=== PATIENT | male | born 1955 | race Caucasian/White ===

== ENCOUNTER → 2017-05-17 | Outpatient (CLI) | payer MEDICAID ==
[~2017-05-17] MED LIST: LOSA100T6 PO; METF500T4 PO; TRAM50TA2 PO; UNKNOWN BP MED
[2017-05-17 14:38] LABS: BLOOD UREA NITROGEN 33 mg/dL (7-18)
[2017-05-17 14:42] LABS: ASPARTATE AMINO TRANSFERASE 20 U/L (15-37)
== END | disposition home or self-care (01) ==
LOC: STAR 13:11
PROVIDERS: ATTEND Orthopaedic Surgery
DX: Z01.818 Encounter for other preprocedural examination (principal); G56.21 Lesion of ulnar nerve, right upper limb; G56.02 Carpal tunnel syndrome, left upper limb
CPT/HCPCS: 36415; 80053; 93005

== ENCOUNTER 2017-05-26 05:29 | Day surgery (SDC) | payer MEDICAID ==
[~2017-05-26] VITALS: Ht 175.3 cm; Wt 132.3 kg
[2017-05-26 06:19] VITALS: BP 166/99
[2017-05-26] MEDS ORDERED: OXYC5CAP4 PO (06:22)
[2017-05-26] MEDS ORDERED: METF500T4 PO (06:22)
[2017-05-26] MEDS ORDERED: LIDOCAINE 1%, 2ML ONE (06:26)
[2017-05-26] MEDS ORDERED: BUPIVACAINE/PF-EPI 0.5% 1:200K ONE (06:38)
[2017-05-26] MEDS ORDERED: LACTATED RINGERS 1,000 ML IV SCH (06:47)
[2017-05-26] MEDS ORDERED: BUPIVACAINE/PF 0.5% ONE (06:54)
[2017-05-26] MEDS ORDERED: FENTANYL PF 250 MCG/5ML ONE (06:56)
[2017-05-26] MEDS ORDERED: MIDAZOLAM 1 MG/ML, 2ML ONE (06:57)
[2017-05-26] MEDS ORDERED: LIDOCAINE 1%, 2ML SQ PRN (07:00)
[2017-05-26] MEDS ORDERED: DEXAMETHASONE 4 MG/ML, 1ML ONE (07:24)
[2017-05-26] MEDS ORDERED: SUCCINYLCHOLINE 20 MG/ML, 10ML ONE (07:24)
[2017-05-26] MEDS ORDERED: ROCURONIUM 10 MG/ML ONE (07:24)
[2017-05-26] MEDS ORDERED: PROPOFOL 10 MG/ML, 20ML ONE (07:24)
[2017-05-26] MEDS ORDERED: ONDANSETRON 2MG/ML, 2ML ONE (07:24)
[2017-05-26] MEDS ORDERED: KETOROLAC 30 MG/1 ML ONE (07:24)
[2017-05-26] MEDS ORDERED: CEFAZOLIN 1,000 MG ONE (07:24)
[2017-05-26] MEDS ORDERED: MEPERIDINE/PF 25MG/0.5ML IVPush PRN (08:30)
[2017-05-26] MEDS ORDERED: ACETAMINOPHEN 325 MG TABLET PO PRN (08:30)
[2017-05-26] MEDS ORDERED: ONDANSETRON 2MG/ML, 2ML IVPush PRN (08:30)
[2017-05-26] MEDS ORDERED: HYDROmorphone 1 MG/ML, 1ML IV PRN (08:30)
[2017-05-26] MEDS ORDERED: OXYcodone 5 MG/5 ML ORAL.SOL UDC PO PRN (08:30)
[2017-05-26] MEDS ORDERED: PROMETHAZINE 25 MG/ML, 1ML IV PRN (08:30)
[2017-05-26] MEDS ORDERED: FENTANYL PF 100 MCG/2ML IV PRN (08:30)
[2017-05-26] MEDS ORDERED: LABETALOL 5MG/ML, 20ML IV PRN (08:30)
[2017-05-26] MEDS ORDERED: hydrALAzine 20 MG/ML, 1ML IV PRN (08:30)
[2017-05-26] MEDS ORDERED: OXYcodone 5 MG/5 ML ORAL.SOL UDC ONE (08:48)
[2017-05-26] MEDS ORDERED: ACETAMINOPHEN 325 MG TABLET ONE (08:49)
[2017-05-26] MEDS ORDERED: ACETAMINOPHEN 650 MG/20.3 ML UDC ONE (08:49)
== END 2017-05-26 11:05 ==
LOC: OUT 05:29
PROVIDERS: ATTEND Orthopaedic Surgery
DX: G56.21 Lesion of ulnar nerve, right upper limb (principal); G56.02 Carpal tunnel syndrome, left upper limb; I10 Essential (primary) hypertension; E11.9 Type 2 diabetes mellitus without complications
CPT/HCPCS: 64718; 64721; 82962; C1763; J0330; J0690; J1100; J1885; J2250; J2405; J2704; J3010; J3490; J7120